=== PATIENT | female | born 1985 | race Caucasian/White ===

== ENCOUNTER → 2023-05-04 09:13 | Outpatient (BNVA) | payer OTHER, SELFPAY | PROVIDERS: PCP Internal Medicine; Visit Provider Surgery ==

== ENCOUNTER 2023-05-07 07:50 | Outpatient (AMB) | payer MEDICAID, SELFPAY ==
[2023-05-07 08:10] VITALS: BMI 35.4
--- NOTE | 2023-05-07 08:10 | A.OFFVIS_ITS ---
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 UP* Allergies hydroxychloroquine [From PLAQUENIL] Allergy (Intermediate, Verified 05/07/23 08:13) RASH acetaminophen [From Percocet] Adverse Reaction (Verified 05/07/23 08:13) Hypotension oxycodone [From Percocet] Adverse Reaction (Verified 05/07/23 08:13) Hypotension Medication List - Last Reconciled 05/07/23 by Marcus Bear MD atorvastatin 20 mg PO DAILY insulin glargine (Lantus Solostar U-100 Insulin) 15 units subcut QAM insulin lispro (Humalog KwikPen (U-100) Insulin) 15 units subcut TID linagliptin-metformin 2.5-850 mg (Jentadueto) 1 tab PO BID 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 *PACKAGE PICK UP* HPI Details Start time: 8.00am, End time: 9.04am ?I spent 59 minutes speaking with the patient on the phone plus an additional 5 minutes reviewing and updating records for a total of 64 minutes HPI Comments History of Present Illness Details Previous weight loss efforts: [facility] program Wakes up: 6am, Sleeps: 11pm Breakfast: 8am (sandwich, pancakes, eggs) Lunch: skips Dinner: 3pm (rice) Snacks: after dinner (crackers, chocolate) Exercise: has a stationary bike Fluids: Coffee (4 cups per day with milk), tea (1 cup/day with Equal), soda (diet coke 3-4/day), juice: (orange juice), ETOH: none PFSH Medical History (Updated 05/07/23 @ 08:27 by Marcus Bear MD) DJD (degenerative joint disease) Anxiety Depression Asthma Hyperlipidemia Obstructive sleep apnea on CPAP Insulin dependent type 1 diabetes mellitus Surgical History (Updated 05/04/23 @ 09:58 by Heidi Wills CMA) Hx of section Family History (Updated 05/04/23 @ 10:00 by Heidi Wills CMA) Maternal Grandmother Breast cancer Social History (Updated 05/04/23 @ 09:35 by Heidi Wills CMA) Alcohol intake: never Patient Tobacco Use Status: Current everyday Tobacco user Tobacco use type: Cigarette Cigarettes Per Day: 5 Physical Exam Vital Signs: BMI result Body Mass Index 35.4 Assessment & Plan Assessment & Plan (1) Obesity: Code(s): E66.9 - Obesity, unspecified Qualifiers: Body mass index: BMI 35.0-35.9 Obesity classification: adult class 2 (BMI 35 - 39.9) Obesity type: due to excess calories Serious obesity comorbidity presence: with serious comorbidity Qualified Code(s): E66.01 - Morbid (severe) obesity due to excess calories; Z68.35 - Body mass index [BMI] 35.0-35.9, adult Plan: 1.? Plan for lap sleeve gastrectomy. If diaphragmatic or ventral hernias are present at time of surgery, these will be repaired laparoscopically as well. Risks and complications were discussed in detail including possible conversion to an open procedure, anastomotic leak, bleeding requiring transfusion, small bowel obstruction, , DVT and pulmonary embolism, cardiac, or pulmonary complications, as long-term complications such as anastomotic ulcer, insufficient weight loss and vitamin deficiencies. I emphasized the importance of close follow-up, adherence to instructions and good communication. 2. Nutritional counseling. Start with 2 CELEBRATE REBUILD protein (buy at [facility]) shakes (HALF scoop EACH in 8oz low fat unsweetened almond milk) at 7am-9am and 10am-12pm, 2 protein bars (CELEBRATE protein bars, buy at [facility] [employer] [facility]) at 1pm-3pm and 4pm-6pm, dinner at 7pm (8 forks of protein and 8 forks of salad/vegetables) AND one more protein bar after dinner at 9pm- 11pm. So you do 3 protein shakes, 3 protein bars and one meal per day. Meal to include lean meat (beef, fish, pork, turkey, chicken), or algerian yogurt, or egg whites, or beans with a salad with olive oil and fruits (berries, pears, apples, kiwi). Avoid salt, breads, potatoes, rice, pasta, desserts. 3. Each shake would be drunk slowly, like coffee in a period of 2 hours. May add your coffee into your shakes, if flavor match. 4. Cut each bar in 4 pieces and eat each piece in 30min ?to make each bar last 2 hours. 5. I emphasized the importance of measuring accurately the food portion and measure it when serving the food in plate 6. The meal portions include 8 full-size forks of meat and 8 full-size forks of salad. You always eat the meat portion but you can replace up to 4 forks for salad/vegetables with rice, potatoes or pasta, or a fruit ?if you like. The less you do it the better weight loss will be. 7. One full-size fork is what it can be scooped on the fork without falling aside and not what can be bit with the fork. Use regular forks like those you find in a typical restaurant. 8.? Please send me weight measurements as soon as possible and then once a week. Always include your diet and exercise plan. 9. Please start stationary bike at a resistance level of 4.0 Increase level by 1.0 every 3 min to a max level of 10.0. Stay at this level for 3 min and then return to level 4.0 and repeat same steps until 300 calories are burned. Velocity target is 12mph and heart rate is 145 bpm. Goal is to burn 2000 calories per week on exercise 10.?It is important of avoiding and for at least 18 months postoperatively and has been discussed at the infosession. 11. Goal is to lose at least 1.5-2lbs per week 12. Goal to lose 10% of your weight before surgery, which is about 21lbs. U ltimate weight goal: 192lbs before surgery 13. Please follow the diet plan exactly without any change. If you don't like something about the plan or you feel hungry you need to communicate with me so I can help you revise the plan. You should not change the plan yourself. 14. Emphasized the importance of checking his blood glucose levels frequently and daily and to report to our office and blood glucose below 100, so we can adjust his insulin and prevent hypoglycemic episodes Orders: Orders Hemoglobin A1c Today E10.9 - Type 1 diabetes mellitus without complications, E66.9 - Obesity, unspecified, E78.5 - Hyperlipidemia, unspecified, G47.33 - Obstructive sleep apnea (adult) (pediatric), J45.909 - Unspecified asthma, uncomplicated, Z68.35 - Body mass index [BMI] 35.0-35.9, adult Complete Blood Count Auto Diff Today E10.9 - Type 1 diabetes mellitus without complications, E66.9 - Obesity, unspecified, E78.5 - Hyperlipidemia, unspecified, G47.33 - Obstructive sleep apnea (adult) (pediatric), J45.909 - Unspecified asthma, uncomplicated, Z68.35 - Body mass index [BMI] 35.0-35.9, adult Zinc Today E10.9 - Type 1 diabetes mellitus without complications, E66.9 - Obesity, unspecified, E78.5 - Hyperlipidemia, unspecified, G47.33 - Obstructive sleep apnea (adult) (pediatric), J45.909 - Unspecified asthma, uncomplicated, Z68.35 - Body mass index [BMI] 35.0-35.9, adult C Reactive Protein Today E10.9 - Type 1 diabetes mellitus without complications, E66.9 - Obesity, unspecified, E78.5 - Hyperlipidemia, unspecified, G47.33 - Obstructive sleep apnea (adult) (pediatric), J45.909 - Unspecified asthma, un complicated, Z68.35 - Body mass index [BMI] 35.0-35.9, adult Vitamin B1 Today E10.9 - Type 1 diabetes mellitus without complications, E66.9 - Obesity, unspecified, E78.5 - Hyperlipidemia, unspecified, G47.33 - Obstructive sleep apnea (adult) (pediatric), J45.909 - Unspecified asthma, uncomplicated, Z68.35 - Body mass index [BMI] 35.0-35.9, adult Vitamin A Today E10.9 - Type 1 diabetes mellitus without complications, E66.9 - Obesity, unspecified, E78.5 - Hyperlipidemia, unspecified, G47.33 - Obstructive sleep apnea (adult) (pediatric), J45.909 - Unspecified asthma, uncomplicated, Z68.35 - Body mass index [BMI] 35.0-35.9, adult TSH reflex Free T4 Today E10.9 - Type 1 diabetes mellitus without complications, E66.9 - Obesity, unspecified, E78.5 - Hyperlipidemia, unspecified, G47.33 - Obstructive sleep apnea (adult) (pediatric), J45.909 - Unspecified asthma, uncomplicated, Z68.35 - Body mass index [BMI] 35.0-35.9, adult XR chest 2V Today E10.9 - Type 1 diabetes mellitus without complications, E66.9 - Obesity, unspecified, E78.5 - Hyperlipidemia, unspecified, G47.33 - Obstructive sleep apnea (adult) (pediatric), J45.909 - Unspecified asthma, uncomplicated, Z68.35 - Body mass index [BMI] 35.0-35.9, adult ECG 12 lead EKG Today E10.9 - Type 1 diabetes mellitus without complications, E66.9 - Obesity, unspecified, E78.5 - Hyperlipidemia, unspecified, G47.33 - Obstructive sleep apnea (adult) (pediatric), J45.909 - Unspecified asthma, uncomplicated, Z68.35 - Body mass index [BMI] 35.0-35.9, adult RT home sleep study Today E10.9 - Type 1 diabetes mellitus without complications, E66.9 - Obesity, unspecified, E78.5 - Hyperlipidemia, unspecified, G47.33 - Obstructive sleep apnea (adult) (pediatric), J45.909 - Unspecified asthma, uncomplicated, Z68.35 - Body mass index [BMI] 35.0-35.9, adult Insulin Today E10.9 - Type 1 diabetes mellitus without complications, E66.9 - Obesity, unspecified, E78.5 - Hyperlipidemia, unspecified, G47.33 - Obstructive sleep apnea (adult) (pediatric), J45.909 - Unspecified asthma, uncomplicated, Z68.35 - Body mass index [BMI] 35.0-35.9, adult H Pylori Breath Test Today E10.9 - Type 1 diabetes mellitus without complications, E66.9 - Obesity, unspecified, E78.5 - Hyperlipidemia, unspecified, G47.33 - Obstructive sleep apnea (adult) (pediatric), J45.909 - Unspecified asthma, uncomplicated, Z68.35 - Body mass index [BMI] 35.0-35.9, adult Lipid Panel Today E10.9 - Type 1 diabetes mellitus without complications, E66.9 - Obesity, unspecified, E78.5 - Hyperlipidemia, unspecified, G47.33 - Obstructive sleep apnea (adult) (pediatric), J45.909 - Unspecified asthma, uncomplicated, Z68.35 - Body mass index [BMI] 35.0-35.9, adult IRON PROFILE Today E10.9 - Type 1 diabetes mellitus without complications, E66.9 - Obesity, unspecified, E78.5 - Hyperlipidemia, unspecified, G47.33 - Obstructive sleep apnea (adult) (pediatric), J45.909 - Unspecified asthma, uncomplicated, Z68.35 - Body mass index [BMI] 35.0-35.9, adult Comprehensive Met. Panel Today E10.9 - Type 1 diabetes mellitus without complications, E66.9 - Obesity, unspecified, E78.5 - Hyperlipidemia, unspecified, G47.33 - Obstructive sleep apnea (adult) (pediatric), J45.909 - Unspecified asthma, uncomplicated, Z68.35 - Body mass index [BMI] 35.0-35.9, adult Vitamin B12 and Folate Today E10.9 - Type 1 diabetes mellitus without complications, E66.9 - Obesity, unspecified, E78.5 - Hyperlipidemia, unspecified, G47.33 - Obstructive sleep apnea (adult) (pediatric), J45.909 - Unspecified asthma, uncomplicated, Z68.35 - Body mass index [BMI] 35.0-35.9, adult Ferritin Today E10.9 - Type 1 diabetes mellitus without complications, E66.9 - Obesity, unspecified, E78.5 - Hyperlipidemia, unspecified, G47.33 - Obstructive sleep apnea (adult) (pediatric), J45.909 - Unspecified asthma, uncomplicated, Z68.35 - Body mass index [BMI] 35.0-35.9, adult Vitamin D 25-OH Total Today E10.9 - Type 1 diabetes mellitus without complications, E66.9 - Obesity, unspecified, E78.5 - Hyperlipidemia, unspecified, G47.33 - Obstructive sleep apnea (adult) (pediatric), J45.909 - Unspecified asthma, uncomplicated, Z68.35 - Body mass index [BMI] 35.0-35.9, adult US abdomen comp w elastography Today E10.9 - Type 1 diabetes mellitus without complications, E66.9 - Obesity, unspecified, E78.5 - Hyperlipidemia, unspecified, G47.33 - Obstructive sleep apnea (adult) (pediatric), J45.909 - Unspecified asthma, uncomplicated, Z68.35 - Body mass index [BMI] 35.0-35.9, adult FL upper GI w air Today E10.9 - Type 1 diabetes mellitus without complications, E66.9 - Obesity, unspecified, E78.5 - Hyperlipidemia, unspecified, G47.33 - Obstructive sleep apnea (adult) (pediatric), J45.909 - Unspecified asthma, uncomplicated, Z68.35 - Body mass index [BMI] 35.0-35.9, adult Referrals Behavioral Health Referral E10.9 - Type 1 diabetes mellitus without complications, E66.9 - Obesity, unspecified, E78.5 - Hyperlipidemia, unspecified, G47.33 - Obstructive sleep apnea (adult) (pediatric), J45.909 - Unspecified asthma, uncomplicated, Z68.35 - Body mass index [BMI] 35.0-35.9, adult Nutrition/Dietitian Referral E10.9 - Type 1 diabetes mellitus without complications, E66.9 - Obesity, unspecified, E78.5 - Hyperlipidemia, unspecified, G47.33 - Obstructive sleep apnea (adult) (pediatric), J45.909 - Unspecified asthma, uncomplicated, Z68.35 - Body mass index [BMI] 35.0-35.9, adult Telehealth Telehealth Location of provider rendering services: practice address Location of patient: address on file Patient Identification confirmed using: Name, : Yes Telehealth method: voice only Patient verbally consented to treatment: Yes Patient verbally consented to billing insurance company: Yes Patient informed of any privacy concerns related to visit: Yes Minutes spent on Phone/Video with Pt.: 64 Coding Level of Care Code Tele [facility] Pt Level 5 (60595) Diagnoses Class 2 severe obesity due to excess calories with serious comorbidity and body mass index (BMI) of 35.0 to 35.9 in adult E66.01; Z68.35 Body mass index: BMI 35.0-35.9 Obesity classification: adult class 2 (BMI 35 - 39.9) Obesity type: due to excess calories Serious obesity comorbidity presence: with serious comorbidity Time Spent (min) 64 Comment With a [place] Zealander speaking mailing section clerk
== END 2023-05-07 09:05 | disposition home or self-care (01) ==
LOC: HO.HBS 07:50
PROVIDERS: PCP Internal Medicine; Visit Provider Surgery
DX: E66.01 Morbid (severe) obesity due to excess calories (principal); Z68.35 Body mass index [BMI] 35.0-35.9, adult
CPT/HCPCS: 99205

== ENCOUNTER → 2023-05-07 07:50 | Outpatient (BNVA) | payer MEDICAID, SELFPAY | PROVIDERS: PCP Internal Medicine; Visit Provider Surgery ==

== ENCOUNTER 2023-05-10 08:34 | Outpatient (REF) | payer MEDICAID, SELFPAY ==
--- NOTE | ~2023-05-10 | XR_ITS ---
EXAMINATION: XR CHEST CLINICAL INFORMATION: Obesity unspecified. COMPARISON: 04/15/2019 TECHNIQUE: 2 views of the chest were obtained. FINDINGS: Lung volumes are low. There is no gross pneumothorax. Heart size is normal. No pleural effusion. No focal consolidation to suggest pneumonia. Mild degenerative changes in the thoracic spine. XR/XR chest 2V IMPRESSION: No evidence of pneumonia.
--- NOTE | 2023-05-10 08:44 | ECG_ITS ---
Test Reason : obesity Blood Pressure : / mmHG Vent. Rate : 074 BPM Atrial Rate : 074 BPM P-R Int : 170 ms QRS Dur : 076 ms QT Int : 402 ms P-R-T Axes : 033 007 012 degrees QTc Int : 446 ms Normal sinus rhythm Low voltage QRS Borderline ECG When compared with ECG of 15-APR-2019 07:59, No significant change was found Referred By: Marcus Bear Electronically Signed By:Cesario Barron
[2023-05-10 09:04] LABS: MANUAL DIFF FLAG NO
[2023-05-10 09:18] LABS: Basophils Percent Auto 0.5 % (0-2); Eosinophils Absolute Auto 0.2 X10*3/uL (0.0-0.4); Eosinophils Percent Auto 1.7 % (0-4); Hematocrit 42.3 % (37.0-47.0); Hemoglobin 14.4 g/dl (12.0-16.0); Imm Gran Abs Auto 0.05 X10*3/uL (0.00-0.03); Imm Gran Pct Auto 0.6 % (0.0-0.4); Lymphocytes Absolute Auto 3.6 X10*3/uL (1.2-4.9); Lymphocytes Percent Auto 41.5 % (20-40); Mean Corpuscular Hemoglobin 29.7 pg (27.0-33.0); Mean Corpuscular Volume 87.2 fL (80.0-98.0); Mean Platelet Volume 9.5 fL (9.4-12.3); Monocytes Absolute Auto 0.5 X10*3/uL (0.1-1.2); Monocytes Percent Auto 5.4 % (2-11); Neutrophils Absolute Auto 4.4 x10*3/uL (2.0-8.3); Neutrophils Percent Auto 50.3 % (45-73); Platelet Count 278 X10*3/uL (160-400); Red Blood Count 4.85 X10*6/uL (4.20-5.50); Red Cell Distribution Width 12.8 % (11.0-16.0); White Blood Count 8.7 X10*3/uL (4.8-10.8)
[2023-05-10 09:37] LABS: Estimated Average Glucose 232 mg/dL; Hemoglobin A1c % 9.7 % (<6.0)
[2023-05-10 10:31] LABS: Alanine Aminotransferase 13 U/L (0-31); Albumin Level 3.7 g/dL (3.5-5.0); Alkaline Phosphatase 59 U/L (39-117); Anion Gap 10 (12-20); Aspartate Amino Transferase 13 U/L (5-31); Bilirubin Total 0.2 mg/dL (0.0-1.0); Blood Urea Nitrogen 14 mg/dL (9-16); C Reactive Protein 1.03 mg/dL (< or = 0.50); Calcium 9.1 mg/dL (8.4-10.2); Carbon Dioxide 27 mmol/L (22-29); Chloride 106 mmol/L (96-108); Cholesterol 164 mg/dL (<200); Estimated Glomerular Filt Rate > 60; Glucose Random 198 mg/dL (60-115); HDL Cholesterol 35 mg/dL (>40); Iron 96 mcg/dL (30-160); LDL Cholesterol Calculated 105 mg/dL (<100); Percent Iron Saturation 38 % (15-50); Sodium 139 mmol/L (135-145); Total Iron Binding Capacity 254 mcg/dL (228-428); Total Protein 7.4 g/dL (6.5-8.0); Triglycerides 122 mg/dL (<150); Unsaturated Iron Binding 158 ug/dL
[2023-05-10 10:37] LABS: Ferritin 68 ng/mL (10-122); Insulin 163 uU/mL (2-29); TSH reflex Free T4 1.52 uIU/mL (0.32-4.0); Vitamin D 25-OH Total 26.4 ng/mL (>30)
[2023-05-10 10:46] LABS: Folate 15.1 ng/mL (> or = 4.0); Vitamin B12 419 pg/mL (200-900)
[2023-05-13 00:13] LABS: Zinc 79 mcg/dL (60-130)
[2023-05-13 14:23] LABS: Vitamin A 27 mcg/dL (38-98)
[2023-05-15 17:24] LABS: Vitamin B1 14 nmol/L (8-30)
== END 2023-05-10 08:35 | disposition home or self-care (01) ==
LOC: HO.XRAY 08:34
PROVIDERS: Visit Provider Surgery
DX: E66.9 Obesity, unspecified (principal); Z68.35 Body mass index [BMI] 35.0-35.9, adult; E10.9 Type 1 diabetes mellitus without complications; G47.33 Obstructive sleep apnea (adult) (pediatric); E78.5 Hyperlipidemia, unspecified; J45.909 Unspecified asthma, uncomplicated; I10 Essential (primary) hypertension
CPT/HCPCS: 36415; 71046; 80053; 80061; 82306; 82607; 82728; 82746; 83036; 83525; 83540; 84425; 84443; 84590; 84630; 85025; 86140; 93005

== ENCOUNTER → 2023-05-10 08:44 | Outpatient (BNV) | payer MEDICAID, SELFPAY | PROVIDERS: Visit Provider Internal Medicine Cardiovascular Disease | DX: E66.9 Obesity, unspecified (principal); R94.31 Abnormal electrocardiogram [ECG] [EKG] | CPT/HCPCS: 93010 ==

== ENCOUNTER 2023-05-28 13:03 | Outpatient (AMB) | payer MEDICAID, SELFPAY ==
--- NOTE | 2023-05-28 13:54 | MHC.OFFVISWM ---
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* HPI Details Start time: 1.50pm, End time: 2.14pm ?I spent 19 minutes speaking with the patient on the phone plus an additional 5 minutes reviewing and updating records for a total of 24 minutes HPI Comments History of Present Illness Details Overall weight loss: 6.4lbs, or 3% TBWL Is doing 2 Celebrate Rebuild protein shakes (1/2 scoop in almond milk), 2 Celebrate protein bars and one meal (8 forks of protein and 8 forks of salad or vegetables) Exercise: is doing treadmill daily for 365-400 calories PFSH Medical History (Updated 05/19/23 @ 19:04 by Marcus Bear MD) DJD (degenerative joint disease) Anxiety Depression Asthma Hyperlipidemia Obstructive sleep apnea on CPAP Insulin dependent type 1 diabetes mellitus Surgical History (Updated 05/04/23 @ 09:58 by Heidi Wills CMA) Hx of section Family History (Updated 05/04/23 @ 10:00 by Heidi Wills CMA) Maternal Grandmother Breast cancer Social History (Updated 05/04/23 @ 09:35 by Heidi Wills CMA) Alcohol intake: never Patient Tobacco Use Status: Current everyday Tobacco user Tobacco use type: Cigarette Cigarettes Per Day: 5 Assessment & Plan Assessment & Plan (1) Obesity: Code(s): E66.9 - Obesity, unspecified Qualifiers: Obesity type: due to excess calories Obesity classification: adult class 2 (BMI 35 - 39.9) Serious obesity comorbidity presence: with serious comorbidity Body mass index: BMI 35.0-35.9 Qualified Code(s): E66.01 - Morbid (severe) obesity due to excess calories; Z68.35 - Body mass index [BMI] 35.0-35.9, adult Plan: 1. Continue same nutritional plan of 2 Celebrate Rebuild protein shakes (1/2 scoop in almond milk), 2 Celebrate protein bars and one meal (8 forks of protein and 8 forks of salad or vegetables) 2. Exercise: continue treadmill daily for 365-400 calories. Goal is to burn at least 2000 calories per week 3. Continue to send me weight measurements weekly on Fridays 4. I will prescribe Wellbutrin to control anxiety since she has quit smoking Medications: New bupropion HCl 150 mg PO QAM 30 tabs 2RF F32.A - Depression, unspecified, F41.9 - Anxiety disorder, unspecified Telehealth Telehealth Location of provider rendering services: practice address Location of patient: address on file Patient Identification confirmed using: Name, : Yes Telehealth method: voice only Patient verbally consented to treatment: Yes Patient verbally consented to billing insurance company: Yes Patient informed of any privacy concerns related to visit: Yes Minutes spent on Phone/Video with Pt.: 24 Coding Level of Care Code Tele Est Pt Level 3 (36164) Diagnoses Class 2 severe obesity due to excess calories with serious comorbidity and body mass index (BMI) of 35.0 to 35.9 in adult E66.01; Z68.35 Obesity type: due to excess calories Obesity classification: adult class 2 (BMI 35 - 39.9) Serious obesity comorbidity presence: with serious comorbidity Body mass index: BMI 35.0-35.9 Time Spent (min) 24 Comment With a [place] speaking follow up specialist
[2023-05-28 13:57] VITALS: BMI 34.3
== END 2023-05-28 14:15 | disposition home or self-care (01) ==
LOC: HO.HBS 13:03
PROVIDERS: PCP Internal Medicine; Visit Provider Surgery
DX: E66.01 Morbid (severe) obesity due to excess calories (principal); Z68.35 Body mass index [BMI] 35.0-35.9, adult
CPT/HCPCS: 99213

== ENCOUNTER → 2023-05-28 13:03 | Outpatient (BNVA) | payer MEDICAID, SELFPAY | PROVIDERS: PCP Internal Medicine; Visit Provider Surgery | DX: E66.9 Obesity, unspecified (principal); Z68.35 Body mass index [BMI] 35.0-35.9, adult; E10.9 Type 1 diabetes mellitus without complications; G47.33 Obstructive sleep apnea (adult) (pediatric); E78.5 Hyperlipidemia, unspecified; J45.909 Unspecified asthma, uncomplicated; E66.01 Morbid (severe) obesity due to excess calories ==